=== PATIENT | female | born 1975 | race American Indian/Alaskan Native ===

== ENCOUNTER 2018-10-13 21:18 | Outpatient (CLI) | payer SELFPAY ==
[2018-10-13 21:59] VITALS: BP 145/75
[2018-10-13] MEDS ORDERED: LACTATED RINGERS 1,000 ML IV SCH (23:00)
== END 2018-10-14 00:08 | disposition home or self-care (01) ==
LOC: TRG 21:18
PROVIDERS: ATTEND Obstetrics & Gynecology
DX: O62.8 Other abnormalities of forces of labor (principal); O13.3 Gestational [pregnancy-induced] hypertension without significant proteinuria, third trimester; Z3A.39 39 weeks gestation of pregnancy
CPT/HCPCS: 59025

== ENCOUNTER 2018-10-19 06:24 | Inpatient (IN) | payer OTHER ==
--- NOTE | 2018-10-19 09:05 | History and Physical Report ---
History of Present Illness Date of examination: 10/19/18 Date of admission: 10/19/18 06:24 Chief complaint: Repeat C Section History of present illness: Pt is a 42yo BF EDC 10/24/18; EGA 39 2/7 weeks presents for a Repeat C Section. She received care at [facility] and co-managed by [facility] for AMA and previous preeclampsia. labs are available and GBS is Positive. Past History Past Medical History: no pertinent history Past Surgical History: section Family/Genetic History: none Social history: no significant social history, - Obstetrical History Expected Date of Delivery: 10/24/18 Actual Gestation: 39 Week(s) 2 Day(s) : 3 Medications and Allergies Allergies Allergy/AdvReac Type Severity Reaction Status Date / Time No Known Allergies Allergy Unverified 10/13/18 22:37 Review of Systems All systems: negative - Vital Signs Vital signs: Vital Signs Pulse BP 95 H 145/90 10/19/18 07:24 10/19/18 07:24 Temp Pulse Resp BP Pulse Ox 99.8 F H 88 14 136/80 100 10/19/18 07:27 10/19/18 09:02 10/19/18 07:27 10/19/18 09:02 10/19/18 07:49 - Physical Exam Breasts: Positive: deferred Cardiovascular: Regular rate Lungs: Positive: Clear to auscultation Abdomen: Positive: normal appearance Genitourinary (Female): Positive: normal external genitalia Vagina: Positive: normal moisture Uterus: Positive: enlarged Extremities: Positive: normal - Obstetrical FHR: category 1 Uterine Contraction Monitor Mode: External Results Result Diagrams: 10/19/18 08:20 10/19/18 08:20 All other labs normal. Assessment and Plan - Patient Problems (1) 39 weeks gestation of Onset Date: 10/19/18 Current Visit: Yes Status: Acute Plan to address problem: A: IUP @ 39 2/7 weeks Previous C Section Previous preeclampsia AMA P: Admit to L&D for Repeat C Section (2) Previous section Onset Date: 10/19/18 Current Visit: Yes Status: Acute (3) AMA (advanced maternal age) multigravida 35+ Onset Date: 10/19/18 Current Visit: Yes Status: Acute Qualifiers: Trimester: third trimester Qualified Code(s): O09.523 - Supervision of elderly multigravida, third trimester
[2018-10-19] MEDS ORDERED: PHENERGAN PO PRN ×2 (09:08→20:52)
[2018-10-19] MEDS ORDERED: PHENERGAN PR PRN ×2 (09:08→20:52)
[2018-10-19] MEDS ORDERED: ZOFRAN IV PRN ×2 (09:08→20:52)
[2018-10-19] MEDS ORDERED: BENADRYL IV PRN ×2 (09:08→20:52)
[2018-10-19] MEDS ORDERED: NARCAN 0.4 MG/1 ML IV PRN ×2 (09:08→16:50)
--- NOTE | 2018-10-19 09:10 | Post Anesthesia Evaluation ---
- Post Anesthesia Evaluation Patient Participated: Yes Airway Patent: Yes Stable Respiratory Function: Yes Nausea/Vomiting: No Temp > 96.8F: Yes Pain Manageable: Yes Adequeate Hydration: Yes Anesthesia Complications: No Block Receding Appropriately: Yes Patient on Ventilator: No
--- NOTE | 2018-10-19 09:10 | Anesthesia Day of Surgery ---
Anesthesia Day of Surgery - Day of Surgery Patient Examined: Yes Patient H&P Reviewed: Yes Patient is NPO: Yes Beta Blockers: No Cardiac Clearance: No Pulmonary Clearance: No Kvng's Test: N/A
[2018-10-19] MEDS ORDERED: BICITRA PO ONE (09:18)
[2018-10-19] MEDS ORDERED: PEPCID IV NR (09:18)
[2018-10-19] MEDS ORDERED: REGLAN IV NR (09:18)
[2018-10-19] MEDS ORDERED: SUBLIMAZE ONE (09:19)
[2018-10-19 09:39] LABS: Basophils % (Auto) 0.4 % (0.0-1.8); Eosinophils # (Auto) 0.1 K/mm3 (0.0-0.4); Eosinophils % (Auto) 0.9 % (0.0-4.3); Hematocrit 39.9 % (30.3-42.9); Hemoglobin 13.1 gm/dl (10.1-14.3); Lymphocytes # (Auto) 1.2 K/mm3 (1.2-5.4); Lymphocytes % (Auto) 21.6 % (13.4-35.0); Mean Corpuscular HGB Conc 33 % (30-34); Mean Corpuscular Volume 95 fl (79-97); Monocytes # (Auto) 0.5 K/mm3 (0.0-0.8); Platelet Count 238 K/mm3 (140-440); Red Blood Count 4.22 M/mm3 (3.65-5.03); Red Cell Distribution Width 14.9 % (13.2-15.2)
[2018-10-19] MEDS ORDERED: PEPCID IV ONE ×2 (10:00→14:39)
[2018-10-19] MEDS ORDERED: ANCEF/STERILE WATER 2 GM/20 ML 2 GM/20 ML SYRINGE IV NR (10:00)
[2018-10-19] MEDS ORDERED: PITOCin/NS 20 UNIT/1000ML DRIP 20 UNITS/1,000 ML BAG IV SCH ×2 (10:00→17:00)
[2018-10-19] MEDS ORDERED: SODIUM CHLORIDE FLUSH SYRINGE 10 ML IV NR ×2 (10:00→17:00)
[2018-10-19] MEDS ORDERED: LACTATED RINGERS 1,000 ML IV SCH (10:00)
[2018-10-19 10:02] LABS: Albumin 3.5 g/dL (3.9-5); BUN/Creatinine Ratio 6; Blood Urea Nitrogen 3 mg/dL (7-17); Calcium 9.6 mg/dL (8.4-10.2); Hemolysis Index 106
[2018-10-19 10:12] LABS: Alanine Aminotransferase 15 units/L (7-56)
[2018-10-19] MEDS ORDERED: BICITRA ONE (14:39)
[2018-10-19] MEDS ORDERED: TUCKS PAD TP PRN (16:50)
[2018-10-19] MEDS ORDERED: MILK OF MAGNESIA PO PRN (16:50)
[2018-10-19] MEDS ORDERED: TYLENOL PO PRN (16:50)
[2018-10-19] MEDS ORDERED: SENOKOT PO PRN (16:50)
[2018-10-19] MEDS ORDERED: MYLICON PO PRN (16:50)
[2018-10-19] MEDS ORDERED: NORCO 5/325 PO PRN (16:50)
[2018-10-19] MEDS ORDERED: LANSINOH TP PRN (16:50)
[2018-10-19] MEDS ORDERED: D5LR 1,000 ML IV SCH (17:00)
[2018-10-19] MEDS ORDERED: ANCEF/NS 1 GM/50 ML 1 GM/50 ML BAG IV SCH (17:00)
--- NOTE | 2018-10-19 17:12 | Operative Report ---
Operative Report Operative Report: Date of procedure: 10/19/2018 Pre-operative diagnosis: 1. Intrauterine at 39-2/7 weeks 2. Previ ous 3. Previous preeclampsia 4. Advanced maternal age Post-operative diagnosis: Same Procedure name(s): Repeat low transverse section Surgeon: Gian Branham MD Hack[place] Doll Wigs: None Anesthesia: Spinal anesthesia by Dr. Mart EBL: 300 mls Findings: A 3500 g male infant Apgars 8 at 1 minute and 9 at 5 minutes. Clear amniotic fluid. Normal uterus. Normal tubes and ovaries bilaterally. Procedure: After the patient was prepped and draped in usual sterile fashion, and after satisfactory level of epidural anesthesia was obtained, the skin knife was used to make a transverse skin incision through the previous skin scar. The incision was excised down to layer of the fascia, which was nicked in the midline and extended laterally using the Bovie cautery. The rectus muscles were dissected off the rectus fascia both superiorly and inferiorly. The rectus bellies in the midline, and the peritoneum was entered under direct visualization. The peritoneal incision was extended superiorly and inferiorly. A bladder flap was created and the bladder blade was then placed. The uterus was scored in a curvilinear linear fashion, entered in the midline revealing clear amniotic fluid. The infant's head was delivered onto the surgical field, and the oropharynx and nasopharynx were bulb suctioned. The rest of the infant's body was delivered, cord was doubly clamped and cut and the infant was handed to the waiting respiratory team. Cord blood was then obtained. The placenta was manually removed from the uterus, and the uterus removed from its normal anatomical position. After gentle uterine lavage, the incision was inspected and found to be without extensions. It was then closed in 2 layers using 0 Vicryl suture in a running interlocking fashion, the second layer imbricating the first. After good hemostasis was achieved, copious amounts or irrigation was performed, and the gutters were suctioned free of blood and blood clots. The Tisseel sealant was sprayed across the uterine incision. The uterus was then returned to its normal anatomical position, and after excellent hemostasis assured, the peritoneum was re-approximated using 3-0 Vicryl suture in a running interlocking fashion, and then the rectus muscles were re- approximated using 3-0 Vicryl suture in a [id number] configuration. The fascia was then re-approximated using 0 Vicryl suture in running interlocking fashion. The subcutaneous layer was made hemostatic using Bovie cautery, the Tisseel sealant was sprayed across the fascial incision and the skin edges re-approximated using 4-0 Vicryl suture in a sub-cuticular fashion. Patient tolerated the procedure well was transported to recovery in stable condition.
[2018-10-19] MEDS: TORADOL IV PRN (20:30)
[2018-10-19] MEDS ORDERED: DILAUDID IV PRN (20:52)
--- NOTE | 2018-10-19 20:55 | Anesthesia Consultation ---
Anesthesia Consult and Med Hx Date of service: 10/19/18 - Airway Anesthetic Teeth Evaluation: Good ROM Head & Neck: Adequate Mental/Hyoid Distance: Adequate Mallampati Class: Class II Intubation Access Assessment: Probably Good - Pulmonary Exam CTA: Yes - Cardiac Exam Cardiac Exam: RRR - Pre-Operative Health Status ASA Pre-Surgery Classification: ASA2 Proposed Anesthetic Plan: Spinal - Pulmonary Hx Smoking: No Hx Asthma: No Hx Respiratory Symptoms: No SOB: No COPD: No Home Oxygen Therapy: No Hx Pneumonia: No Hx Sleep Apnea: No - Cardiovascular System Hx Hypertension: No Hx Coronary Artery Disease: No Hx Heart Attack/AMI: No Hx Angina: No Hx Percutaneous Transluminal Coronary Angioplasty (PTCA): No Hx Cardia Arrhythmia: No Hx Pacemaker: No Hx Internal Defibrillator: No Hx Valvular Heart Disease: No Hx Heart Murmur: No Hx Peripheral Vascular Disease: No - Central Nervous System Hx Neuromuscular Disorder: No Hx Seizures: No CVA: No Hx Back Pain: Yes Hx Psychiatric Problems: No - Gastrointestinal Hx Ulcer: No Hx Gastroesophageal Reflux Disease: Yes - Endocrine Hx Renal Disease: No Hx End Stage Renal Disease: No Hx Cirrhosis: No Hx Liver Disease: No Hx Insulin Dependent Diabetes: No Hx Non-Insulin Dependent Diabetes: No Hx Thyroid Disease: No Hx Hypothyroidism: No Hx Hyperthyroidism: No - Hematic Hx Anemia: No Hx Sickle Cell Disease: No - Other Systems Hx Alcohol Use: No Hx Substance Use: No Hx Cancer: No Hx Obesity: No
[2018-10-19] MEDS ORDERED: SODIUM CHLORIDE FLUSH SYRINGE 10 ML IV PRN (21:00)
[2018-10-19] MEDS: DILAUDID IV PRN (21:31)
[2018-10-19] MEDS: ANCEF/NS 1 GM/50 ML 1 GM/50 ML BAG IV SCH (23:56)
[2018-10-20] MEDS: DILAUDID IV PRN (01:09)
[2018-10-20] MEDS: TORADOL IV PRN (02:49)
[2018-10-20 06:27] LABS: Hemoglobin 12.5 gm/dl (10.1-14.3)
[2018-10-20] MEDS: PERCOCET 5/325 PO PRN ×3 (08:15→23:09)
[2018-10-20] MEDS: IBUPROFEN PO PRN ×3 (08:20→23:09)
[2018-10-20] MEDS: ANCEF/NS 1 GM/50 ML 1 GM/50 ML BAG IV SCH (08:41)
[2018-10-20] MEDS: FEOSOL PO SCH (09:43)
[2018-10-20] MEDS: PRENATAL VITAMIN PO SCH (09:43)
--- NOTE | 2018-10-20 12:08 | Progress Note ---
Assessment and Plan A: POD #1 Stable P: Follow Routine Orders Encouraged increased ambulation Subjective - Subjective Date of service: 10/20/18 Patient reports: appetite normal, voiding normally (states catheter was removed this morning and voids have been small since), pain well controlled, ambulating normally Objective - Vital Signs Latest vital signs: Vital Signs Temp Pulse Resp BP BP Pulse Ox 10/20/18 07:47 98.8 F 104 H 18 127/70 98 10/20/18 04:34 99.6 F 100 H 20 117/70 98 10/19/18 23:54 98.0 F 95 H 20 110/66 96 10/19/18 19:47 98.0 F 82 18 139/77 100 10/19/18 18:36 97.7 F 81 20 128/78 100 10/19/18 18:00 97.7 F 77 20 121/74 100 10/19/18 17:45 74 17 108/61 100 10/19/18 17:30 69 19 113/64 100 10/19/18 17:15 79 19 118/63 10/19/18 17:10 76 16 115/60 98 10/19/18 17:05 97.9 F 78 14 110/57 98 10/19/18 15:05 100 H 133/83 Intake and Output 10/19/18 10/20/18 10/20/18 22:59 06:59 14:59 Intake Total 900 290 Output Total 675 Balance 900 -385 Intake: IV 900 50 ANCEF/NS 1 GM/50 ML 1 gm 50 In 50 ml @ 100 mls/hr IV Q8H [facility] Rx#:[id number] Oral 240 Output: Urine 675 Indwelling Catheter 600 Void 75 Other: Total, Intake Amount 240 Total, Output Amount 75 Estimated Blood Loss 300 - Exam Breasts: Present: normal Cardiovascular: Present: Regular rate Lungs: Present: Clear to auscultation, Normal air movement Abdomen: Present: normal appearance, soft, normal bowel sounds Uterus: Present: normal, firm, fundal height below umbilicus Extremities: Present: normal Incision: Present: normal, dry, dressed
[2018-10-20] MEDS ORDERED: M-M-R II VACCINE SUB-Q ONE (16:52)
[2018-10-20] MEDS ORDERED: BOOSTRIX IM ONE (16:52)
[2018-10-21] MEDS: IBUPROFEN PO PRN ×2 (05:59→18:06)
[2018-10-21] MEDS: PERCOCET 5/325 PO PRN ×2 (05:59→18:05)
--- NOTE | 2018-10-21 10:55 | Progress Note ---
Assessment and Plan A: POD #2 s/p Repeat c/s Ambulating, eating and voiding without difficulty Stable P: Follow Routine PostOp Orders Abdominal binder Discharge home in am Subjective - Subjective Date of service: 10/21/18 Principal diagnosis: POD#2 s/p Repeat c/s Patient reports: appetite normal, voiding normally, pain well controlled, flatus, ambulating normally, no bowel movement [place]: doing well, nursing well Objective - Vital Signs Latest vital signs: Vital Signs Temp Pulse Resp BP BP Pulse Ox 10/21/18 07:30 98.0 F 89 20 109/57 98 10/20/18 23:25 98.8 F 102 H 18 128/75 99 10/20/18 16:26 98.4 F 92 H 18 124/68 98 10/20/18 12:01 98.3 F 95 H 18 112/56 98 Intake and Output 10/20/18 10/21/18 10/21/18 23:59 07:59 15:59 Intake Total 240 480 Balance 240 480 Intake: Intake, Free Water 240 480 Other: # Voids Void 2 1 - Exam Breasts: Present: normal, Cardiovascular: Present: Regular rate, Normal S1, Normal S2, No murmurs Lungs: Present: Clear to auscultation, Normal air movement Abdomen: Present: normal appearance, soft, tenderness (as expected post-op), normal bowel sounds. Absent: distention Vulva: both: normal Uterus: Present: firm, fundal height at umbilicus Extremities: Present: normal Deep Tendon Reflex Grade: Normal +2 Incision: Present: normal (LTI, closed with SQ sutures and steri strips, CDI), dry, intact
--- NOTE | 2018-10-21 10:57 | Discharge Summary ---
Providers - Providers Date of Admission: 10/19/18 06:24 Date of discharge: 10/22/18 Attending physician: ALYSSA HILL Primary care physician: ALYSSA HILL Hospitalization Reason for admission: IUP at term Delivery: Procedure: repeat low transverse Procedure details: See H&P and operative report Episiotomy: none, midline Incision: normal (LTI, closed with SQ sutures and steri strips, CDI), intact Other procedures: none complications: none Discharge diagnosis: IUP at term delivered baby: male Condition at discharge: Good Disposition: DC-01 TO HOME OR SELFCARE Plan - Discharge Medications Prescriptions: Ferrous Sulfate [Feosol 325 MG tab] 325 mg PO BID #60 tablet Ibuprofen [Motrin] 800 mg PO Q8HR PRN #30 tablet PRN Reason: Pain, Mild (1-3) HYDROcodone/APAP 5-325 [[place] 5/325] 1 each PO Q6HR PRN #30 tablet PRN Reason: Pain Vit-Fe Fumar-FA [ Vitamin] 1 tab PO QDAY #30 tablet - Provider Discharge Summary Activity: routine, no sex for 6 weeks, no heavy lifting 4 weeks, no strenuous exercise Diet: routine Instructions: routine Additional instructions: [] Smoking cessation referral if applicable(refer to patient education folder for contact #) [] Refer to [facility]'s [facility] Booklet Call your doctor immediately for: * Fever > 100.5 * Heavy vaginal bleeding ( >1 pad per hour) * Severe persistent headache * Shortness of breath * Reddened, hot, painful area to leg or breast * Drainage or odor from incision. * Keep incision clean and dry at all times and follow doctor's instructions regarding bathing/showering - Follow up plan Follow up: ALYSSA HILL MD [Primary Care Provider] - 7 Days
[2018-10-21] MEDS: PRENATAL VITAMIN PO SCH (11:03)
[2018-10-21] MEDS: FEOSOL PO SCH (11:03)
[2018-10-21] MEDS ORDERED: M-M-R II VACCINE SUB-Q ONE (15:16)
[2018-10-22] MEDS: PERCOCET 5/325 PO PRN (05:53)
[2018-10-22] MEDS: IBUPROFEN PO PRN (05:54)
[2018-10-22 09:41] VITALS: BP 119/74
[2018-10-22] MEDS: PRENATAL VITAMIN PO SCH (09:52)
[2018-10-22] MEDS: FEOSOL PO SCH (09:52)
== END 2018-10-22 10:00 | disposition home or self-care (01) | DRG 788 ==
LOC: APU 06:24 → OB 17:59
PROVIDERS: ADMIT Obstetrics & Gynecology; ATTEND Obstetrics & Gynecology
PROC: 10D00Z1 Extraction of Products of Conception, Low, Open Approach (ICD-10-PCS; principal; 2018-10-19)
PROC: 3E0234Z Introduction of Serum, Toxoid and Vaccine into Muscle, Percutaneous Approach (ICD-10-PCS; 2018-10-20)
DX: O34.211 Maternal care for low transverse scar from previous cesarean delivery (principal); O99.62 Diseases of the digestive system complicating childbirth; K21.9 Gastro-esophageal reflux disease without esophagitis; O99.824 Streptococcus B carrier state complicating childbirth; Z3A.39 39 weeks gestation of pregnancy; Z37.0 Single live birth; O09.523 Supervision of elderly multigravida, third trimester; Z23 Encounter for immunization
CPT/HCPCS: 36415; 59025; 80053; 85014; 85018; 85025; 86592; 86706; 86850; 86900; 86901; 90707; 96360; 96374; G0378; A6250; J0690; J1170; J1200; J1885; J2405; J2590; J2765; J3010; J7120